=== PATIENT | male | born 1955 | race Caucasian/White ===

== ENCOUNTER 2017-11-24 05:00 | Inpatient (IN) | payer OTHER ==
[~2017-11-24] VITALS: Ht 180.3 cm; Wt 87.3 kg
[2017-11-24 06:21] LABS: BASOPHIL % 0.5 % (0-2); RED CELL DISTRIBUTION WIDTH 14.3 % (11.5-14.5)
[2017-11-24 06:22] LABS: PLATELET COUNT 56 x10^3mcL (130-400)
[2017-11-24 06:29] LABS: CALCIUM 8.3 mg/dL (8.5-10.1); CHLORIDE SERUM 97 mmol/L (98-107); CREATININE SERUM 1.2 mg/dL (0.7-1.3); GFR1 > 60 mL/min; GLUCOSE SERUM 404 mg/dL (74-106); POTASSIUM SERUM 3.8 mmol/L (3.5-5.1); SODIUM SERUM 139 mmol/L (136-145)
[2017-11-24 06:33] LABS: ALKALINE PHOSPHATASE 107 U/L (46-116); ALT/SGPT 62 U/L (16-63); AST/SGOT 98 U/L (15-37); TOTAL PROTEIN, SERUM 7.4 g/dL (6.4-8.2)
[2017-11-24 06:38] LABS: ALBUMIN 3.2 g/dL (3.4-5.0)
[2017-11-24] MEDS ORDERED: MYS50 PO (07:18)
[2017-11-24] MEDS ORDERED: GABAPENTIN600 M1 PO (07:18)
[2017-11-24] MEDS ORDERED: NATURE'S BLEND F1 MG PO (07:18)
[2017-11-24] MEDS ORDERED: PANTOPRAZOLE SO40 M1 PO (07:19)
[2017-11-24] MEDS ORDERED: METFORMIN HYD1000 M2 PO (07:19)
[2017-11-24] MEDS ORDERED: GOOD SENSE ASPI81 M3 PO (07:19)
[2017-11-24] MEDS ORDERED: CVS B12 SL (07:19)
[2017-11-24] MEDS ORDERED: ATORVASTATIN CA40 M1 PO (07:20)
[2017-11-24] MEDS ORDERED: LANTUS SOLOS100 U/M1 SC (07:20)
[2017-11-24] MEDS ORDERED: NOVOLOG FLEX100 U/M1 SC (07:20)
[2017-11-24 10:27] LABS: microscopic required? NO
[2017-11-24 10:33] LABS: urine erythrocyte NEGATIVE (NEGATIVE)
[2017-11-24 10:45] VITALS: BP 125/73
[2017-11-24 10:47] LABS: AMPHETAMINE QUAL UR NONE DETECTED (NEG <=1000)
[2017-11-24 11:51] VITALS: BP 125/73
[2017-11-24 11:55] VITALS: BP 124/69
[2017-11-24 16:09] LABS: T3 TOTAL 0.56 ng/mL
[2017-11-24 19:09] LABS: CHOLESTEROL/HDL RATIO 9.5; MAGNESIUM 1.2 mg/dL (1.8-2.4)
[2017-11-24 19:25] VITALS: BP 118/72
[2017-11-24 19:33] LABS: FREE T4 0.96 ng/dL (0.76-1.46); FREE THYROXINE INDEX 2.4 ug/dL (1.4-4.5); T4(THYROXINE) 6.8 ug/dL (4.7-13.3)
[2017-11-24 23:00] VITALS: BP 116/70
[2017-11-25 00:38] LABS: BASOPHIL % 0.6 % (0-2)
[2017-11-25 00:43] LABS: RED CELL DISTRIBUTION WIDTH 14.6 % (11.5-14.5)
[2017-11-25 00:52] LABS: PLATELET COUNT 45 x10^3mcL (130-400)
[2017-11-25 03:00] VITALS: BP 123/71
[2017-11-25 05:56] LABS: CALCIUM 7.8 mg/dL (8.5-10.1); CARBON DIOXIDE 26.5 mmol/L (21-32); CHLORIDE SERUM 106 mmol/L (98-107); CREATININE SERUM 0.9 mg/dL (0.7-1.3); GFR1 > 60 mL/min; GLUCOSE SERUM 115 mg/dL (74-106); MAGNESIUM 1.1 mg/dL (1.8-2.4); PHOSPHOROUS 4.1 mg/dL (2.5-4.9); POTASSIUM SERUM 3.7 mmol/L (3.5-5.1); SODIUM SERUM 141 mmol/L (136-145)
[2017-11-25 05:58] LABS: BASOPHIL % 0.5 % (0-2); RED CELL DISTRIBUTION WIDTH 14.6 % (11.5-14.5)
[2017-11-25 06:07] LABS: PLATELET COUNT 45 x10^3mcL (130-400)
[2017-11-25 08:00] VITALS: BP 126/69
[2017-11-25 10:56] VITALS: BP 117/85
[2017-11-25 11:59] VITALS: Ht 180.3 cm; Wt 87.3 kg
[2017-11-25 12:30] VITALS: BP 128/77
[2017-11-25 16:00] VITALS: BP 113/62
[2017-11-25 20:58] VITALS: BP 139/72
[2017-11-26 05:34] VITALS: BP 147/78
[2017-11-26 07:43] LABS: BASOPHIL % 2.2 % (0-2); CARBON DIOXIDE 27.3 mmol/L (21-32); CHLORIDE SERUM 102 mmol/L (98-107); CREATININE SERUM 0.8 mg/dL (0.7-1.3); GFR1 > 60 mL/min; GLUCOSE SERUM 104 mg/dL (74-106); MAGNESIUM 1.5 mg/dL (1.8-2.4); PLATELET COUNT 60 x10^3mcL (130-400); POTASSIUM SERUM 3.6 mmol/L (3.5-5.1); SODIUM SERUM 137 mmol/L (136-145)
[2017-11-26 10:00] VITALS: BP 107/60
[2017-11-26 14:00] VITALS: BP 108/54
[2017-11-26 18:01] VITALS: BP 124/57
[2017-11-26 22:21] VITALS: BP 99/54
[2017-11-27 06:18] VITALS: BP 92/52
[2017-11-27 07:06] LABS: BASOPHIL % 1.5 % (0-2); RED CELL DISTRIBUTION WIDTH 13.6 % (11.5-14.5)
[2017-11-27 07:25] LABS: CARBON DIOXIDE 27.3 mmol/L (21-32); CHLORIDE SERUM 103 mmol/L (98-107); CREATININE SERUM 0.8 mg/dL (0.7-1.3); GFR1 > 60 mL/min; GLUCOSE SERUM 119 mg/dL (74-106); MAGNESIUM 1.5 mg/dL (1.8-2.4); POTASSIUM SERUM 4.5 mmol/L (3.5-5.1); SODIUM SERUM 138 mmol/L (136-145)
[2017-11-27 07:56] LABS: PLATELET COUNT 49 x10^3mcL (130-400)
[2017-11-27] MEDS ORDERED: BIA500 PO (08:15)
[2017-11-27] MEDS ORDERED: AMO500 PO (08:16)
[2017-11-27] MEDS ORDERED: MAGNESIUM OXID400 MG PO (08:20)
[2017-11-27] MEDS ORDERED: PRI20 PO (08:23)
[2017-11-27 09:00] VITALS: BP 102/54
[2017-11-27] MEDS ORDERED: FER300 PO (10:14)
[2017-11-27] MEDS ORDERED: VITC PO (10:14)
[2017-11-27] MEDS ORDERED: THI100 PO (10:15)
[2017-11-27] MEDS ORDERED: LEVEMIR100 U/M1 SQ (10:16)
[2017-11-27] MEDS ORDERED: IND10 PO (10:18)
[2017-11-27 12:12] VITALS: BP 110/65
[2017-11-27 15:49] VITALS: BP 110/65
[2017-11-27] MEDS ORDERED: NEU300 PO (16:50)
== END 2017-11-27 17:16 | disposition home or self-care (01) | DRG 280 ==
LOC: ED 05:00 → IC 07:02 → DU 11-26 00:25
PROVIDERS: Emergency Medicine; Family Medicine; Internal Medicine Gastroenterology
PROC: 0DB78ZX Excision of Stomach, Pylorus, Via Natural or Artificial Opening Endoscopic, Diagnostic (ICD-10-PCS; principal; 2017-11-24 11:30)
PROC: 06L38CZ Occlusion of Esophageal Vein with Extraluminal Device, Via Natural or Artificial Opening Endoscopic (ICD-10-PCS; 2017-11-24 11:30)
DX: K70.30 Alcoholic cirrhosis of liver without ascites (principal); N17.0 Acute kidney failure with tubular necrosis; I85.11 Secondary esophageal varices with bleeding; D61.818 Other pancytopenia; D68.69 Other thrombophilia; E11.51 Type 2 diabetes mellitus with diabetic peripheral angiopathy without gangrene; E11.65 Type 2 diabetes mellitus with hyperglycemia; E11.42 Type 2 diabetes mellitus with diabetic polyneuropathy; D69.59 Other secondary thrombocytopenia; I10 Essential (primary) hypertension; E83.42 Hypomagnesemia; E83.51 Hypocalcemia; L40.9 Psoriasis, unspecified; F12.10 Cannabis abuse, uncomplicated; E78.5 Hyperlipidemia, unspecified; I25.10 Atherosclerotic heart disease of native coronary artery without angina pectoris; Z79.4 Long term (current) use of insulin; Z79.82 Long term (current) use of aspirin; Z68.26 Body mass index [BMI] 26.0-26.9, adult; Z95.1 Presence of aortocoronary bypass graft; Z79.84 Long term (current) use of oral hypoglycemic drugs; E44.1 Mild protein-calorie malnutrition
CPT/HCPCS: 36600; 43235; 82962; 83880; 84439; C9113; G0480; J0171; J1200; J1610; J1815; J2250; J2310; J2354; J2405; J2765; J3010; J3475; J3490; J7030; J7040; J7050; Q0092

== ENCOUNTER 2019-01-18 12:23 | Inpatient (IN) | payer OTHER ==
[~2019-01-18] VITALS: Ht 177.8 cm; Wt 77.1 kg
[~2019-01-18 12:23] MED LIST: AMO500 PO; ATORVASTATIN CA40 M1 PO; BIA500 PO; CVS B12 SL; FER300 PO; GABAPENTIN600 M1 PO; GOOD SENSE ASPI81 M3 PO; IND10 PO; LANTUS SOLOS100 U/M1 SC; LEVEMIR100 U/M1 SQ; MAGNESIUM OXID400 MG PO; METFORMIN HYD1000 M2 PO; MYS50 PO; NATURE'S BLEND F1 MG PO; NEU300 PO; NOVOLOG FLEX100 U/M1 SC; PANTOPRAZOLE SO40 M1 PO; PRI20 PO; THI100 PO; VITC PO
[2019-01-18 12:26] VITALS: Ht 177.8 cm; Wt 77.1 kg
[2019-01-18 13:17] LABS: BASOPHIL % 0.4 % (0-2); RED CELL DISTRIBUTION WIDTH 15.1 % (11.5-14.5)
[2019-01-18 13:27] LABS: BILIRUBIN TOTAL 2.15 mg/dL (0.20-1.00); CALCIUM 6.9 mg/dL (8.5-10.1); CARBON DIOXIDE 23.3 mmol/L (21-32); TOTAL PROTEIN, SERUM 6.7 g/dL (6.4-8.2)
[2019-01-18 13:40] LABS: ALBUMIN 3.1 g/dL (3.4-5.0)
[2019-01-18 13:42] LABS: POTASSIUM SERUM 2.8 mmol/L (3.5-5.1)
[2019-01-18 14:04] LABS: PLATELET COUNT 42 x10^3mcL (130-400)
[2019-01-18 15:48] VITALS: BP 103/61
[2019-01-18 15:51] LABS: PHOSPHOROUS 3.4 mg/dL (2.5-4.9)
[2019-01-18 15:54] LABS: CHOLESTEROL/HDL RATIO 7.6
[2019-01-18 15:58] LABS: FREE T4 1.15 ng/dL (0.76-1.46); FREE THYROXINE INDEX 2.7 ug/dL (1.4-4.5); T3 TOTAL 0.89 ng/mL; T4(THYROXINE) 7.3 ug/dL (4.7-13.3)
[2019-01-18] MEDS ORDERED: GABAPENTIN300 M4 PO (16:44)
[2019-01-18] MEDS ORDERED: METFORMIN HCL500 MG PO (16:46)
[2019-01-18] MEDS ORDERED: LIPITOR40 MG PO (16:49)
[2019-01-18] MEDS ORDERED: ENALAPRIL MALEAT5 MG PO (16:50)
[2019-01-18] MEDS ORDERED: ISOSORBIDE MONO30 MG PO (16:51)
[2019-01-18] MEDS ORDERED: CITALOPRAM HYDR20 M1 PO (16:52)
[2019-01-18 18:13] VITALS: BP 114/62
[2019-01-18 19:26] LABS: BASOPHIL % 0.4 % (0-2); PLATELET COUNT 34 x10^3mcL (130-400)
[2019-01-18 19:32] LABS: CALCIUM 6.9 mg/dL (8.5-10.1); CARBON DIOXIDE 25.9 mmol/L (21-32); CREATININE SERUM 1.5 mg/dL (0.7-1.3); POTASSIUM SERUM 3.6 mmol/L (3.5-5.1)
[2019-01-18 21:37] VITALS: BP 122/50
[2019-01-19 06:15] VITALS: BP 109/69
[2019-01-19 06:30] LABS: BASOPHIL % 0.5 % (0-2)
[2019-01-19 08:06] LABS: CALCIUM 7.1 mg/dL (8.5-10.1); CARBON DIOXIDE 25.2 mmol/L (21-32); CHLORIDE SERUM 104 mmol/L (98-107); GFR1 > 60 mL/min; GLUCOSE SERUM 88 mg/dL (74-106); MAGNESIUM 1.9 mg/dL (1.8-2.4); PHOSPHOROUS 3.4 mg/dL (2.5-4.9); POTASSIUM SERUM 3.5 mmol/L (3.5-5.1); SODIUM SERUM 140 mmol/L (136-145)
[2019-01-19 08:58] LABS: PLATELET COUNT 29 x10^3mcL (130-400)
[2019-01-19 09:33] VITALS: BP 115/68
[2019-01-19 12:37] VITALS: BP 110/65
[2019-01-19 16:51] VITALS: BP 98/65
[2019-01-19 20:22] VITALS: BP 91/58
[2019-01-19 23:18] LABS: microscopic required? NO
[2019-01-19 23:48] LABS: UA SPECIFIC GRAVITY 1.025 (1.005-1.035); urine erythrocyte NEGATIVE (NEGATIVE)
[2019-01-19 23:57] LABS: AMPHETAMINE QUAL UR NONE DETECTED (See below)
[2019-01-20] VITALS (8 sets, daily range): BP systolic 106–122; BP diastolic 55–80
[2019-01-20 07:30] LABS: BASOPHIL % 0.6 % (0-2); RED CELL DISTRIBUTION WIDTH 15.3 % (11.5-14.5)
[2019-01-20 07:48] LABS: CALCIUM 7.2 mg/dL (8.5-10.1); CARBON DIOXIDE 24.8 mmol/L (21-32); CHLORIDE SERUM 103 mmol/L (98-107); CREATININE SERUM 0.9 mg/dL (0.7-1.3); GFR1 > 60 mL/min; GLUCOSE SERUM 138 mg/dL (74-106); MAGNESIUM 2.1 mg/dL (1.8-2.4); PHOSPHOROUS 3.6 mg/dL (2.5-4.9); POTASSIUM SERUM 3.5 mmol/L (3.5-5.1); SODIUM SERUM 138 mmol/L (136-145)
[2019-01-20 08:52] LABS: PLATELET COUNT 31 x10^3mcL (130-400)
[2019-01-21 06:03] VITALS: BP 127/64
[2019-01-21 06:40] LABS: BASOPHIL % 0.5 % (0-2); RED CELL DISTRIBUTION WIDTH 14.5 % (11.5-14.5)
[2019-01-21 06:44] LABS: CALCIUM 7.3 mg/dL (8.5-10.1); CARBON DIOXIDE 28.7 mmol/L (21-32); CHLORIDE SERUM 103 mmol/L (98-107); CREATININE SERUM 0.8 mg/dL (0.7-1.3); GFR1 > 60 mL/min; GLUCOSE SERUM 159 mg/dL (74-106); MAGNESIUM 1.3 mg/dL (1.8-2.4); SODIUM SERUM 138 mmol/L (136-145)
[2019-01-21 08:16] LABS: PLATELET COUNT 40 x10^3mcL (130-400)
[2019-01-21 08:20] VITALS: BP 112/61
[2019-01-21 12:00] VITALS: BP 117/63
[2019-01-21 16:40] VITALS: BP 125/74
[2019-01-21 20:51] VITALS: BP 115/55
[2019-01-22 05:56] VITALS: BP 138/68
[2019-01-22 06:29] LABS: CALCIUM 7.5 mg/dL (8.5-10.1); CARBON DIOXIDE 27.9 mmol/L (21-32); CHLORIDE SERUM 101 mmol/L (98-107); CREATININE SERUM 0.8 mg/dL (0.7-1.3); GFR1 > 60 mL/min; GLUCOSE SERUM 124 mg/dL (74-106); MAGNESIUM 1.2 mg/dL (1.8-2.4); PHOSPHOROUS 2.2 mg/dL (2.5-4.9); POTASSIUM SERUM 3.7 mmol/L (3.5-5.1); SODIUM SERUM 138 mmol/L (136-145)
[2019-01-22 07:46] LABS: BASOPHIL % 0.6 % (0-2)
[2019-01-22 07:50] LABS: PLATELET COUNT 51 x10^3mcL (130-400)
[2019-01-22 09:29] VITALS: BP 133/68
[2019-01-22 13:41] VITALS: BP 114/67
[2019-01-22 17:32] VITALS: BP 124/82
[2019-01-22 20:49] VITALS: BP 139/73
[2019-01-23 06:16] VITALS: BP 133/68
[2019-01-23 07:11] LABS: CALCIUM 8.1 mg/dL (8.5-10.1); CARBON DIOXIDE 29.9 mmol/L (21-32); CHLORIDE SERUM 103 mmol/L (98-107); CREATININE SERUM 0.8 mg/dL (0.7-1.3); GFR1 > 60 mL/min; GLUCOSE SERUM 129 mg/dL (74-106); MAGNESIUM 1.6 mg/dL (1.8-2.4); PHOSPHOROUS 3.6 mg/dL (2.5-4.9); POTASSIUM SERUM 3.6 mmol/L (3.5-5.1); SODIUM SERUM 140 mmol/L (136-145)
[2019-01-23 07:34] LABS: BASOPHIL % 0.4 % (0-2)
[2019-01-23 07:35] LABS: PLATELET COUNT 53 x10^3mcL (130-400); RED CELL DISTRIBUTION WIDTH 14.9 % (11.5-14.5)
[2019-01-23 08:00] VITALS: BP 122/69
[2019-01-23 12:50] VITALS: BP 112/70; BP 95/54
[2019-01-23 18:06] VITALS: BP 107/60
[2019-01-23 20:17] VITALS: BP 100/54
[2019-01-24 04:57] VITALS: BP 138/69
[2019-01-24 10:05] VITALS: BP 123/61
[2019-01-24 13:25] VITALS: BP 123/61
[2019-01-24 13:50] VITALS: BP 108/61
[2019-01-24 17:31] VITALS: BP 109/58
[2019-01-24 20:26] VITALS: BP 105/57
== END 2019-01-25 00:55 | DRG 280 ==
LOC: ED 12:23 → DU 14:15
PROVIDERS: Emergency Medicine; Internal Medicine; Internal Medicine Gastroenterology; ADMIT General Practice
PROC: 0D768ZZ Dilation of Stomach, Via Natural or Artificial Opening Endoscopic (ICD-10-PCS; principal; 2019-01-23 12:30)
PROC: 0DB68ZX Excision of Stomach, Via Natural or Artificial Opening Endoscopic, Diagnostic (ICD-10-PCS; 2019-01-23 12:30)
PROC: 06L38CZ Occlusion of Esophageal Vein with Extraluminal Device, Via Natural or Artificial Opening Endoscopic (ICD-10-PCS; 2019-01-23 12:30)
DX: K70.30 Alcoholic cirrhosis of liver without ascites (principal); I21.4 Non-ST elevation (NSTEMI) myocardial infarction; N17.0 Acute kidney failure with tubular necrosis; I85.11 Secondary esophageal varices with bleeding; E11.42 Type 2 diabetes mellitus with diabetic polyneuropathy; I27.20 Pulmonary hypertension, unspecified; E44.1 Mild protein-calorie malnutrition; E11.649 Type 2 diabetes mellitus with hypoglycemia without coma; F10.20 Alcohol dependence, uncomplicated; Y90.0 Blood alcohol level of less than 20 mg/100 ml; F12.10 Cannabis abuse, uncomplicated; E83.51 Hypocalcemia; R74.0 Nonspecific elevation of levels of transaminase and lactic acid dehydrogenase [LDH]; K31.89 Other diseases of stomach and duodenum; K76.6 Portal hypertension; F32.9 Major depressive disorder, single episode, unspecified; D64.9 Anemia, unspecified; E87.6 Hypokalemia; I10 Essential (primary) hypertension; E78.5 Hyperlipidemia, unspecified; I25.2 Old myocardial infarction; Z68.25 Body mass index [BMI] 25.0-25.9, adult; Z95.1 Presence of aortocoronary bypass graft; Z79.4 Long term (current) use of insulin; Z79.899 Other long term (current) drug therapy
CPT/HCPCS: 43235; 82962; 83880; 84439; 97110-GP; 97116-GP; 97530-GP; C1769; C9113; G0480; J0610; J1200; J1610; J2060; J2250; J2270; J2310; J3010; J3475; J3480; J3490; J7030; J7050; P9035; Q0092; Q0163